=== PATIENT | female | born 1990 ===

== ENCOUNTER 2019-02-16 10:00 | Emergency (ER) | payer OTHER ==
[2019-02-16] MEDS ORDERED: NS 0.9% 1000 ML** 1,000 ML IV ONE ×3 (10:07→18:25)
[2019-02-16] MEDS ORDERED: Ondansetron INJ* 2 MG/ML VIAL IV ONE ×2 (10:07→16:29)
[2019-02-16] MEDS ORDERED: Morphine 10 MG/ML VIAL (1 ml) IV ONE ×2 (10:07→11:31)
--- NOTE | 2019-02-16 10:13 | ED ---
Abdominal Pain/Female - HPI Summary HPI Summary: This pt is a 28 y/o female presenting to [facility] via EMS for right sided abd pain since 0500 today. She states she took Nyquil this morning at 0500 upon waking up and went back to sleep. Pt then woke up again at 0700 with worsening abd pain , which she describes as sharp. Associated symptoms of nausea. Pt then went to [facility] and was referred to the ED. Denies vomiting, chest pain, SOB, fever. She currently rates her abd pain 10/10 in severity. Pt is scheduled for an ultrasound today at [facility] for potential cyst. Denies hx of kidney stones. No PMHx. LMP: 1 week ago. Pt reports significant pain with her past menstrual cycle. Denies probability of . Allergic to NSAIDs. - History of Current Complaint Stated Complaint: ABD PAIN PER EMS Hx Obtained From: Patient Onset/Duration: Lasting Hours, Still Present Timing: Hours Severity Currently: Severe Pain Intensity: 10 Pain Scale Used: 0-10 Numeric Location: Other - right sided abdomen Radiates: No Character: Sharp Aggravating Factor(s): Nothing Alleviating Factor(s): Nothing Associated Signs and Symptoms: Positive: Nausea. Negative: Fever, Chest Pain, Vomiting Allergies/Adverse Reactions: Allergies Allergy/AdvReac Type Severity Reaction Status Date / Time NSAIDS (Non-Steroidal Allergy Anaphylatic Verified 02/16/19 10:12 Anti-Inflamma Shock Home Medications: Home Medications Dextromethorphn/Acetaminoph/Cp [Vicks Nyquil Cold & Flu Liquid] 15 ml PO BEDTIME PRN 02/16/19 [History Confirmed 02/16/19] PMH/Surg Hx/FS Hx/Imm Hx Endocrine/Hematology History: Denies: Hx Diabetes Cardiovascular History: Denies: Hx Hypertension History: Denies: Hx Kidney Stones - Family History Known Family History: Negative: Cardiac Disease, Hypertension, Diabetes - Social History Occupation: Student - student counsellor at [employer] Alcohol Use: None Substance Use Type: Reports: None Smoking Status (MU): Never Smoked Tobacco Review of Systems Negative: Fever, Chills Negative: Chest Pain Negative: Shortness Of Breath Positive: Abdominal Pain, Nausea. Negative: Vomiting All Other Systems Reviewed And Are Negative: Yes Physical Exam - Summary Physical Exam Summary: VITAL SIGNS: Reviewed. GENERAL: Patient is a well-developed and nourished female who is lying comfortable in the stretcher. Patient is in some distress secondary to pain. HEAD AND FACE: Normocephalic and atraumatic. EYES: PERRLA, EOMI x 2, No injected conjunctiva. EARS: Hearing grossly intact. Ear canals and tympanic membranes are WNL. MOUTH: Oropharynx within normal limits. NECK: Supple, trachea is midline, no adenopathy, no JVD. CHEST: Symmetric, no tenderness at palpation LUNGS: Clear to auscultation bilaterally. No wheezing or crackles. CVS: RRR, S1 and S2 present, no murmurs or gallops appreciated. ABDOMEN: Soft, RLQ tenderness. No signs of distention. Positive bowel sounds. No rebound no guarding, and no masses palpated. No abdominal bruit or pulsations. EXTREMITIES: FROM in all major joints, no edema, no cyanosis or clubbing. NEURO: Alert and oriented x 3. No acute neurological deficits. Speech is normal. SKIN: Dry and warm Triage Information Reviewed: Yes Vital Signs On Initial Exam: Initial Vitals Temp Pulse Resp BP Pulse Ox 99 F 60 18 121/88 100 02/16/19 10:04 02/16/19 10:04 02/16/19 10:04 02/16/19 10:04 02/16/19 10:04 Vital Signs Reviewed: Yes Diagnostics - Laboratory Result Diagrams: 02/16/19 11:22 02/16/19 11:22 Lab Statement: Any lab studies that have been ordered have been reviewed, and results considered in the medical decision making process. - CT Abdomen/Pelvis CT CT Interpretation Completed By: Radiologist Summary of CT Findings: IMPRESSION: 1. Normal appendix. 2. Right UVJ calculus with mild right hydronephrosis and perinephric fluid suggestive of forniceal rupture. 3. Fatty infiltration of the liver. Dr. Mitchell has reviewed this report. Re-Evaluation - Re-Evaluation First Eval Re-Evaluation Time: 13:42 Change: Improved Comment: I reviewed the lab and CT results with the pt. Pt notes she has an US scheduled as an outpatient and is wondering if she can have it done in the ED. Second Eval Re-Evaluation Time: 14:50 Comment: Pt will be discharged home with follow up from her PCP. Third Eval Re-Evaluation Time: 16:12 Change: Worse Comment: Pt reports she is in significant pain again. Plan for admission. Abdominal Pain Fem Course/Dx - Course Course Of Treatment: Patient is a 28-year-old female who presents to the emergency department with chief complaint of having right flank pain. The pain is also in the right upper quadrant. Test results without any significant abnormality. Abdominal pelvic CT impression: Normal appendix. Right UVJ calculus with mild hydronephrosis and perinephric fluid suggestive of forniceal rupture. Fatty infiltration of the liver. In the ED course the patient was given morphine for the pain. The patient is unable to take NSAIDs since the patient has allergies to these medications. After hydration and pain medication the patients symptoms have significantly improved. The patient will be discharged home with follow-up from her PCP. She reports that she has an appointment to have a pelvic ultrasound as an outpatient, however she was wondering if we can order the ultrasound from here and the report be sent to the primary care physician. I spoke with the senior technical manager and she agreed to do the ultrasound here and have the report be sent to the primary care physician. I discussed all the findings and test results with the patient. Patient was instructed to return to the emergency room immediately if any of the symptoms return or worsens. Plan of care was discussed with the patient and understands and agrees. All questions were answered at patient satisfaction. There were no further complaints or concerns. Lung exam before discharge: CTA B/ L. Good air exchange. No wheezing or crackles heard. CVS: S1 and S2 present. No murmurs appreciated. Patient is alert and oriented x 3. Patient is hemodynamically stable. Patient will be discharged home with follow up from her PCP in the next 2-3 days. Before the patient was discharged the patient developed again severe pain for which the patient was given another dose of Zofran and morphine. And at this point since I cannot control the pain I discussed my physical exam and findings with Dr. Winn who accepted the patient for admission. She is hemodynamically stable alert and oriented 3. - Diagnoses Provider Diagnoses: Kidney stone Discharge - Sign-Out/Discharge Documenting (check all that apply): Patient Departure Patient Received Moderate/Deep Sedation with Procedure: No - Discharge Plan Condition: Stable Disposition: ADMITTED TO [facility] Prescriptions: oxyCODONE/Acetamin 5/325 MG* [Percocet 5/325 TAB*] 1 tab PO Q6H PRN #12 tab MDD 4 PRN Reason: Pain Patient Education Materials: Kidney Stones (ED) Referrals: [facility] [Outside] Additional Instructions: FOLLOW UP WITH YOUR PRIMARY CARE PROVIDER IN 2-3 DAYS. RETURN TO THE ED FOR ANY NEW OR WORSENING SYMPTOMS. - Billing Disposition and Condition Condition: STABLE Disposition: Admitted to [facility] - Attestation Statements Document Initiated by Scribe: Yes Documenting Scribe: Sarah Park Provider For Whom Scribe is Documenting (Include Credential): Jey Mitchell MD Scribe Attestation: Sarah De La Torre, scribed for Jey Mitchell MD on 02/16/19 at 1810. Scribe Documentation Reviewed: Yes Provider Attestation: The documentation as recorded by the Sarah noe accurately reflects the service I personally performed and the decisions made by , Jey Mitchell MD Status of Scribe Document: Viewed
[2019-02-16 11:32] LABS: ABS Basophils 0 10^3/ul (0-0.2); ABS Eosinophils 0 10^3/ul (0-0.6); ABS Lymphocytes 1.3 10^3/ul (1.0-4.8); ABS Monocytes 0.4 10^3/ul (0-0.8); ABS Neutrophils 5.2 10^3/ul (1.5-7.7); ABS Nucleated RBC 0 10^3/ul; Eosinophil % 0.2 %; Hematocrit 39 % (33-41); Hemoglobin 12.8 g/dL (12.0-16.0); Lymphocyte % 19.2 %; Mean Corpuscular HGB Conc 33 g/dL (31-36); Mean Corpuscular Hemoglobin 30 pg (27-31); Mean Corpuscular Volume 90 fL (80-97); Mean Platelet Volume 8.6 fL (7.4-10.4); Nucleated Red Blood Cells % 0; Platelet Count 236 10^3/uL (150-450); Red Blood Count 4.27 10^6 /uL (3.70-4.87); Red Cell Distribution Width 13 % (10.5-15); White Blood Count 6.9 10^3/uL (3.5-10.8)
[2019-02-16 11:55] LABS: ALT 10 U/L (7-52); AST 15 U/L (13-39); Albumin/Globulin Ratio 1.4 (1-3); Alkaline Phosphatase 53 U/L (34-104); Anion Gap 8 mmol/L (2-11); BUN/Creatinine Ratio 20.3 (8-20); Blood Urea Nitrogen 13 mg/dL (6-24); C Reactive Protein < 1.00 mg/L (<8.01); CO2 Carbon Dioxide 22 mmol/L (22-32); Calcium 8.5 mg/dL (8.6-10.3); Chloride 107 mmol/L (101-111); EGFR African American 132.7 (>60); EGFR Non-African American 109.7 (>60); Globulin 2.8 g/dL (2-4); Glucose 103 mg/dL (70-100); Potassium 3.7 mmol/L (3.5-5.0); Sodium 137 mmol/L (135-145); Total Protein 6.8 g/dL (6.4-8.9)
[2019-02-16 12:00] LABS: HCG Pregnancy < 0.60 mIU/mL
[2019-02-16] MEDS ORDERED: Iohexol 300* (CONTRAST) 10 ML SDV IV ONE (12:02)
[2019-02-16] MEDS ORDERED: Ketorolac INJ* 30 MG/ML 1 ML VIAL IV PUSH ONE (13:33)
[2019-02-16 14:02] LABS: Urine Appearance Clear; Urine Bilirubin Negative (Negative); Urine Blood Negative (Negative); Urine Color Yellow; Urine Glucose Negative (Negative); Urine Ketones Negative (Negative); Urine Nitrite Negative (Negative); Urine Protein Negative (Negative); Urine Specific Gravity 1.028 (1.010-1.030); Urine Urobilinogen Negative (Negative)
[2019-02-16] MEDS: Morphine 4 MG/ML VIAL (1 ml) 4 MG/ML VIAL IV PRN ×2 (14:38→16:53)
[2019-02-16] MEDS ORDERED: Morphine 4 MG/ML VIAL (1 ml) 4 MG/ML VIAL IV PRN (16:02)
[2019-02-16] MEDS ORDERED: oxyCODONE/Acetamin 5/325 MG* TAB PO ONE ×2 (18:25→19:59)
[2019-02-16] MEDS ORDERED: Metoclopramide IV* 5 MG/ML 2 ML VIAL IV PRN (18:43)
[2019-02-16] MEDS ORDERED: Metoclopramide IV* 5 MG/ML 2 ML VIAL ONE (19:47)
[2019-02-16] MEDS ORDERED: Metoclopramide TAB* 10 MG PO ONE (19:59)
--- NOTE | 2019-02-16 20:14 | CONSULT ---
Subjective Date of Service: 02/16/19 Interval History: Medicine Consult Note 28 yo F with PMH endometeriosis vs chronic pelvic pain who presented with 1 day of R flank pain, N/V, came to ER and found to have 2mm stone in R ureter, non obstructive, case d/w urology who felt pt did not meet criteria for intervention and medicine was consulted for admission for pain control Upon interview w patient she wants to go home, although has allergy NSAID and we discuss doing PO Percocet with fluids and watchful waiting. Objective VSS Well appearing woman, tearful, CTABL, RRR no MRG, Belly soft ND, + CVAT on R, no edema Labs: Normal CBC and BMP, Normal UA A/P 28 yo F with 2mm R nephrolithiasis, does not meet criteria for urologic intervention, initally ocnsulted for pain control but on re examination pt would like to try PO pain control and go home. Medicine signing off and pt can be d/c from ED Review of Systems - Measurements Intake and Output: Intake and Output Last 24 Hours 02/14/19 02/15/19 02/16/19 02/17/19 06:59 06:59 06:59 06:59 Intake Total 1999 Balance 1999 Weight 130 lb Intake: IV Fluids 1999 Objective Active Medications: Metoclopramide HCl (Reglan Iv*) 10 mg IV Q3H PRN PRN Reason: NAUSEA Last Admin: 02/16/19 19:52 Dose: 10 mg Morphine Sulfate (Morphine 4 Mg/Ml Vial (1 Ml)) 4 mg IV Q6H PRN PRN Reason: PAIN Last Admin: 02/16/19 16:53 Dose: 4 mg Vital Signs - 8 hr 02/16/19 02/16/19 02/16/19 13:00 13:08 13:33 Temperature Pulse Rate 72 71 71 Respiratory 18 22 17 Rate Blood Pressure 128/83 125/94 (mmHg) O2 Sat by Pulse 99 100 99 Oximetry 02/16/19 02/16/19 02/16/19 13:39 14:00 14:09 Temperature Pulse Rate 61 58 60 Respiratory 14 12 18 Rate Blood Pressure 129/84 124/86 (mmHg) O2 Sat by Pulse 100 100 99 Oximetry 02/16/19 02/16/19 02/16/19 14:38 14:39 15:00 Temperature Pulse Rate 69 57 Respiratory 22 18 14 Rate Blood Pressure 128/85 (mmHg) O2 Sat by Pulse 98 97 Oximetry 02/16/19 02/16/19 02/16/19 15:09 15:33 16:00 Temperature 97.5 F Pulse Rate 57 Respiratory 17 22 Rate Blood Pressure 118/79 126/88 (mmHg) O2 Sat by Pulse 100 Oximetry 02/16/19 02/16/19 16:53 19:52 Temperature Pulse Rate Respiratory 17 16 Rate Blood Pressure (mmHg) O2 Sat by Pulse Oximetry Result Diagrams: 02/16/19 11:22 02/16/19 11:22 Assessment/Plan - Billing See HPI
[2019-02-16 20:47] VITALS: BP 128/94
== END 2019-02-16 20:46 | disposition short-term general hospital (02) ==
LOC: ED 10:00
DX: N13.2 Hydronephrosis with renal and ureteral calculous obstruction (principal); K76.0 Fatty (change of) liver, not elsewhere classified; R11.0 Nausea; R10.11 Right upper quadrant pain; Z88.6 Allergy status to analgesic agent
CPT/HCPCS: 36415; 74177; 80053; 81003; 83605; 83690; 84702; 85025; 86140; 96361; 96374; 96375; 96376; 99285; A9270-GY; J2270; J2405; J2765; Q9967